=== PATIENT | male | born 1980 | race Two or more races ===

== ENCOUNTER 2018-03-08 09:32 | Day surgery (SDC) | payer SELFPAY ==
[~2018-03-08 09:32] MED LIST: Acetaminophen/HYDROcodone 325-5 MG Tab PO PRN; Bupivacaine 0.5% 30 ML SDV ONE; Lactated Ringers 1,000 ML IV SCH; ceFAZolin 2 GM in Premix Bag 1 BAG IV SCH
[2018-03-08] MEDS ORDERED: Ketorolac 30 MG/ML SDV ONE (11:46)
[2018-03-08] MEDS ORDERED: Lidocaine 2% 5 ML SDV ONE (11:50)
[2018-03-08] MEDS ORDERED: Midazolam 1 MG/ML 2 ML SDV ONE (11:51)
[2018-03-08] MEDS ORDERED: Propofol 200 MG/20 ML SDV ONE (11:51)
[2018-03-08] MEDS ORDERED: fentaNYL 250 MCG/5 ML SDV ONE (11:51)
[2018-03-08] MEDS ORDERED: ceFAZolin/Dextrose,Iso-Osmotic 2 GM/50 ML Duplex Bag IV ONE (11:52)
--- NOTE | 2018-03-08 11:54 | PCM.PREANE ---
Preanesthetic Assessment - Anesthesia/Transfusion/Family Hx Anesthesia History: Prior Anesthesia Without Reaction Family History of Anesthesia Reaction: No Transfusion History: No Prior Transfusion(s) - Review of Systems General: No Symptoms Pulmonary: No Symptoms Cardiovascular: No Symptoms Gastrointestinal: No Symptoms Neurological: No Symptoms Other: Reports: None - Physical Assessment NPO Status Date: 03/07/18 NPO Status Time: 21:30 O2 Sat by Pulse Oximetry: 96 Respiratory Rate: 16 Vital Signs: Last Vital Signs Temp 36.6 C 03/08/18 11:20 Pulse 76 03/08/18 11:20 Resp 16 03/08/18 11:20 BP 121/76 03/08/18 11:20 Pulse Ox 96 03/08/18 11:20 Height: 1.7 m Weight: 85.729 kg ASA Class: 2 Mental Status: Alert & Oriented x3 Airway Class: Mallampati = 1 Dentition: Reports: Normal Dentition ROM/Head Extension: Full Lungs: Clear to Auscultation, Normal Respiratory Effort Cardiovascular: Regular Rate, Regular Rhythm - Allergies Allergies/Adverse Reactions: Allergies Allergy/AdvReac Type Severity Reaction Status Date / Time No Known Allergies Allergy Verified 03/04/18 11:37 - Anesthesia Plan Pre-Op Medication Ordered: None - Acknowledgements Anesthesia Type Planned: General Anesthesia Pt an Appropriate Candidate for the Planned Anesthesia: Yes Alternatives and Risks of Anesthesia Discussed w Pt/Guardian: Yes Pt/Guardian Understands and Agrees with Anesthesia Plan: Yes Additional Comments: PMH: seasonal allergies, retained hardware (10 years), stopped nsaid 7 day ago. states non smoker. PreAnesthesia Questionnaire HEENT History: Reports: Allergic Rhinitis Respiratory History: Reports: Other (See Below) Other Respiratory History: hx of snoring- may have sleep apnea- not tested Musculoskeletal History: Reports: Fracture - Past Surgical History Head Surgeries/Procedures: Reports: None Musculoskeletal Surgical History: Reports: ORIF Other Musculoskeletal Surgeries/Procedures:: ORIF right ankle (has hardware), ORIF left wrist (has hardware) - SUBSTANCE USE Smoking Status *Q: Former Smoker Recreational Drug Use History: No - HOME MEDS Home Medications: Home Meds Cholecalciferol (Vitamin D3) [Vitamin D3] 5,000 unit PO DAILY 03/04/18 [History] Fluticasone Propionate [Flonase Allergy Relief] 1 spray NASBOTH DAILY 03/04/18 [ History] Meloxicam [Mobic] 15 mg PO DAILY 03/04/18 [History] Multivitamin [Men's Multi-Vitamin] 1 tab PO DAILY 03/04/18 [History] - CURRENT (IN HOUSE) MEDS Current Meds: Current Medications Hydrocodone Bitart/Acetaminophen ([place] 325-5 Mg) 1 - 2 tab PO Q4H PRN PRN Reason: Pain Cefazolin Sodium/Dextrose 2 gm (/ Premix) 50 mls @ 100 mls/hr IV ONCALL HEATHER Lactated Ringer's (Ringers, Lactated) 1,000 mls @ 100 mls/hr IV ASDIRECTED [facility] Last Admin: 03/08/18 11:31 Dose: 100 mls/hr Discontinued Medications Bupivacaine HCl (Marcaine 0.5%) Confirm Administered Dose 30 ml .ROUTE .STK-MED ONE Stop: 03/08/18 07:58 Ketorolac Tromethamine (Toradol) Confirm Administered Dose 30 mg .ROUTE .STK- MED ONE Stop: 03/08/18 11:47
--- NOTE | 2018-03-08 13:13 | PCM.OPNOTE ---
- General Post-Op/Procedure Note Date of Surgery/Procedure: 03/08/18 Operative Procedure(s): HWR R ankle Post-Op Diagnosis: painful retained HW R ankle Anesthesia Technique: General LMA Primary Surgeon: Luz Keith Boom Worker: Cha Chambers Boom Worker: Mahesh Gómez in mLs: 5 Condition: Good Free Text/Narrative:: tt=15 min #[id number]
[2018-03-08] MEDS ORDERED: fentaNYL 100 MCG/2 ML SDV IVPUSH PRN (13:21)
--- NOTE | 2018-03-08 13:48 | PCM.POSTAN ---
POST ANESTHESIA ASSESSMENT - MENTAL STATUS Mental Status: Alert, Oriented - RESPIRATORY Respiratory Status: Respiratory Rate WNL, Airway Patent, O2 Saturation Stable - CARDIOVASCULAR CV Status: Pulse Rate WNL, Blood Pressure Stable - GASTROINTESTINAL GI Status: No Symptoms - PAIN Pain Score: 0 - POST OP HYDRATION Hydration Status: Adequate & Stable
--- NOTE | 2018-03-08 14:46 | PCM48HPAN ---
Post Anesthesia Note - EVALUATION WITHIN 48HRS OF ANESTHETIC Vital Signs in Normal Range: Yes Patient Participated in Evaluation: Yes Respiratory Function Stable: Yes Airway Patent: Yes Cardiovascular Function Stable: Yes Hydration Status Stable: Yes Pain Control Satisfactory: Yes Nausea and Vomiting Control Satisfactory: Yes Mental Status Recovered: Yes Resp Rate: 14
--- NOTE | 2018-03-08 15:17 | CR ---
EXAMINATION: Right ankle HISTORY: Hardware removal COMPARISON: 02/19/2018 TECHNIQUE: Single view FINDINGS/IMPRESSION: The previously demonstrated screws fixating the medial malleolus have been remov ed. There is persistent screw and plate fixation of the distal fibula.
--- NOTE | 2018-03-08 16:57 | OR ---
SURGEON: Luz Keith MD DATE OF PROCEDURE: 03/08/2018 PREOPERATIVE DIAGNOSIS: Painful retained hardware, right ankle, medial malleolus. POSTOPERATIVE DIAGNOSIS: Painful retained hardware, right ankle, medial malleolus. PROCEDURE: Hardware removal of right ankle (medial malleolus), deep implant. ASSISTANTS: 1. Cha Chambers PA-C. 2. Mahesh Gómez MD, PGY-2. ANESTHESIA: General. ESTIMATED BLOOD LOSS: 5 mL. TOURNIQUET TIME: 15 minutes. COMPLICATIONS: None. DVT PROPHYLAXIS: Not indicated. IMPLANTS USED: None. BRIEF HISTORY: Kris is a 37-year-old male, who previously underwent open reduction and internal [facility]. He had done well initially; however, has developed increased pain over the medial malleolus. He was evaluated in clinic. X-ray showed that the medial malleolus screws appeared to be backing out. Clinically, he did have palpable hardware beneath the skin. The fracture appeared to be well healed. Due to his lack of response to conservative treatment, I did recommend surgical intervention. The risks and goals of procedure were discussed with the patient and were documented preoperatively. He agreed to proceed. DESCRIPTION OF PROCEDURE: The patient was properly identified and brought to the operating room. He was transferred from the OR cart and placed on the operating table in supine position. General anesthesia was administered. After adequate anesthesia was obtained, a well-padded tourniquet was applied to the right lower extremity. The right lower extremity was then prepped in standard fashion using ChloraPrep solution. It was then sterilely draped. A time-out was performed to ensure correct site and procedure. Preoperative antibiotics were given. The surgical site had been marked preoperatively. An Esmarch was used to exsanguinate the right lower extremity and the tourniquet was inflated to 250 mmHg. An incision was made, centered over the hardware. The subcutaneous tissues were dissected, and the screws were immediately evident. Both screws and washers were removed without difficulty. The wound was copiously irrigated with saline solution. The deep tissue was closed with 3-0 Vicryl. The tourniquet was deflated. No excess bleeding was noted. Skin was closed with chasidy. 1% Lidocaine was injected along the incision site. Xeroform gauze was placed over the wound and a bulky dressing was applied. He was awakened from his anesthetic and transferred back to the operating room cart. He was brought to recovery room in stable condition. All needle and sponge counts were correct. MILTON FRANK /[id number]
== END 2018-03-08 14:30 | disposition home or self-care (01) ==
LOC: MW.SDS 09:32
PROVIDERS: ATTEND Orthopaedic Surgery
DX: T84.84XA Pain due to internal orthopedic prosthetic devices, implants and grafts, initial encounter (principal); J30.9 Allergic rhinitis, unspecified; J30.2 Other seasonal allergic rhinitis; Z87.891 Personal history of nicotine dependence; Z79.899 Other long term (current) drug therapy
CPT/HCPCS: 20680; 76000; J0690; J1885; J2250; J3010; J7120; 88300; J2704